=== PATIENT | female | born 1935 | race Two or more races ===

== ENCOUNTER 2020-09-17 15:46 | Outpatient (REF) | payer MEDICARE, OTHER, SELFPAY ==
--- NOTE | ~2020-09-17 | XR_ITS ---
EXAMINATION: XR KNEE, BILATERAL CLINICAL INFORMATION: Bilateral knee pain. COMPARISON: None TECHNIQUE: Four views of each knee. FINDINGS: Right knee: No acute fracture or dislocation is evident. There is chondrocalcinosis. There is significant narrowing of the lateral joint space compartment with [id number] narrowing of the medial joint space. Marginal spurring is present. Bony density about the medial aspect of the distal right femur is seen consistent with previous medial collateral ligament injury. There is degenerative spurring seen with subchondral cyst formation about the patellofemoral joint. There is a right knee effusion. Prominent vascular calcifications are present. Left knee: Chondrocalcinosis is present. There is moderate narrowing of the medial joint space compartment. No acute fracture or dislocation. No definite effusion is appreciated. Degenerative marginal spurring is seen undersurface of the patella. XR/XR knee RT 4V IMPRESSION: No acute fracture or dislocation of either the right or left knee. Right knee effusion. Bilateral chondrocalcinosis. Degenerative narrowing of the right lateral joint space compartment and patellofemoral joint. Degenerative narrowing of the right lateral joint space compartment and, to a lesser extent, the medial joint space compartment. There is some narrowing of the right patellofemoral joint with marginal spurring.
--- NOTE | ~2020-09-17 | XR_ITS ---
EXAMINATION: XR KNEE, BILATERAL CLINICAL INFORMATION: Bilateral knee pain. COMPARISON: None TECHNIQUE: Four views of each knee. FINDINGS: Right knee: No acute fracture or dislocation is evident. There is chondrocalcinosis. There is significant narrowing of the lateral joint space compartment with [id number] narrowing of the medial joint space. Marginal spurring is present. Bony density about the medial aspect of the distal right femur is seen consistent with previous medial collateral ligament injury. There is degenerative spurring seen with subchondral cyst formation about the patellofemoral joint. There is a right knee effusion. Prominent vascular calcifications are present. Left knee: Chondrocalcinosis is present. There is moderate narrowing of the medial joint space compartment. No acute fracture or dislocation. No definite effusion is appreciated. Degenerative marginal spurring is seen undersurface of the patella. XR/XR knee LT 4V IMPRESSION: No acute fracture or dislocation of either the right or left knee. Right knee effusion. Bilateral chondrocalcinosis. Degenerative narrowing of the right lateral joint space compartment and patellofemoral joint. Degenerative narrowing of the right lateral joint space compartment and, to a lesser extent, the medial joint space compartment. There is some narrowing of the right patellofemoral joint with marginal spurring.
== END 2020-09-17 15:47 | disposition home or self-care (01) ==
LOC: HO.XRAY 15:46
PROVIDERS: PCP Family Medicine; Visit Provider Family Medicine
DX: M25.561 Pain in right knee (principal); M25.562 Pain in left knee
CPT/HCPCS: 73564

== ENCOUNTER 2020-10-09 10:18 | Outpatient (REF) | payer MEDICARE, OTHER, SELFPAY ==
--- NOTE | ~2020-10-09 | US_ITS ---
EXAMINATION: US ABDOMEN COMPLETE CLINICAL INFORMATION: Abnormal levels of serum enzymes. COMPARISON: None TECHNIQUE: Real-time imaging of the abdominal viscera. FINDINGS: PANCREAS: Normal. Tail obscured by gas ABDOMINAL AORTA: There is mild atherosclerosis of the abdominal aorta. INFERIOR VENA CAVA: Visualized portions are normal. LIVER: The left lobe is enlarged measuring 14.1 cm in length. The right hepatic lobe is normal size. The liver is coarse, echogenic with scalloped margins. No focal hepatic lesion. There is no intrahepatic biliary duct dilatation seen. GALLBLADDER: Gallbladder is not seen. Question cholecystectomy. Correlate with clinical history.. COMMON BILE DUCT: Normal in caliber measuring 0.42 cm in diameter. RIGHT KIDNEY: Normal. No hydronephrosis. No renal calculi or focal parenchymal lesions. The kidney measures 9.6 cm in maximum dimension. LEFT KIDNEY: Normal. No hydronephrosis. No renal calculi or focal parenchymal lesions. The kidney measures 10.8 cm in maximum dimension. SPLEEN: The spleen is mildly enlarged The spleen measures 14.4 cm in maximum dimension. FREE FLUID: None. US/US abdomen complete IMPRESSION: Coarse echogenic cirrhotic liver without any focal lesion. Mild left hepatic lobe enlargement. Gallbladder not seen. Mild splenomegaly. Rest of the abdominal ultrasound is unremarkable.
== END 2020-10-09 10:19 | disposition home or self-care (01) ==
LOC: HO.US 10:18
PROVIDERS: Visit Provider Family Medicine
DX: R74.8 Abnormal levels of other serum enzymes (principal)
CPT/HCPCS: 76700

== ENCOUNTER → 2021-02-13 10:09 | Outpatient (BNVA) | payer MEDICARE, OTHER, SELFPAY | PROVIDERS: PCP Family Medicine; Visit Provider Surgery Vascular Surgery | DX: I73.9 Peripheral vascular disease, unspecified (principal) | CPT/HCPCS: 99202 ==

== ENCOUNTER 2021-03-06 08:22 | Outpatient (REF) | payer MEDICARE, OTHER, SELFPAY ==
--- NOTE | ~2021-03-06 | US_ITS ---
EXAMINATION: COLOR-FLOW DUPLEX IMAGING OF THE BILATERAL LOWER EXTREMITY ARTERIAL SYSTEM. VELOCITY MEASUREMENTS THROUGHOUT THE FEMORAL ARTERIES WITH ANKLE-BRACHIAL PERIPHERAL ARTERIAL TESTING. Interventional Radiologist: Jarrell Julian M.D., F.S.I.R., F.A.C.R. CLINICAL INFORMATION: This is an 86-year-old female with foot ulcers. Diabetes. Peripheral arterial disease. RIGHT FEMORAL RUNOFF VELOCITIES: The right common femoral artery measures 208 cm/s and biphasic. The right profunda femoral artery is 183 cm/s and is biphasic. Right proximal superficial femoral artery measures 182 cm/s and biphasic. Mid superficial femoral artery is 554 cm/s and biphasic. Distal right superficial femoral artery measures 65 cm/s and is biphasic. Right popliteal velocity measures 96 cm/s and is biphasic. The posterior tibial artery velocity measures 49 cm/s and was monophasic. The right ankle-brachial index is 0.47. LEFT FEMORAL RUNOFF VELOCITIES: The left common femoral artery measures 145 cm/s and biphasic. The left profunda femoral artery is 162 cm/s and is biphasic. Left proximal superficial femoral artery measures 137 cm/s and biphasic. Mid superficial femoral artery is 108 cm/s and biphasic. Distal left superficial femoral artery measures 123 cm/s and is biphasic. Left popliteal velocity measures 138 cm/s and is biphasic. The posterior tibial artery is occluded. The left peroneal artery is patent. The left ankle-brachial index is 0.57. There is scattered atherosclerotic plaque bilaterally. US/US arterial duplex LE BI IMPRESSION: 1. There is a high-grade right superficial femoral artery stenosis. 2. There is scattered atherosclerotic disease on the left runoff. However, the left posterior tibial artery appears to be occluded.
--- NOTE | ~2021-03-06 | US_ITS ---
EXAMINATION: COLOR-FLOW DUPLEX IMAGING OF THE BILATERAL LOWER EXTREMITY ARTERIAL SYSTEM. VELOCITY MEASUREMENTS THROUGHOUT THE FEMORAL ARTERIES WITH ANKLE-BRACHIAL PERIPHERAL ARTERIAL TESTING. Interventional Radiologist: Jarrell Julian M.D., F.S.I.R., F.A.C.R. CLINICAL INFORMATION: This is an 86-year-old female with foot ulcers. Diabetes. Peripheral arterial disease. RIGHT FEMORAL RUNOFF VELOCITIES: The right common femoral artery measures 208 cm/s and biphasic. The right profunda femoral artery is 183 cm/s and is biphasic. Right proximal superficial femoral artery measures 182 cm/s and biphasic. Mid superficial femoral artery is 554 cm/s and biphasic. Distal right superficial femoral artery measures 65 cm/s and is biphasic. Right popliteal velocity measures 96 cm/s and is biphasic. The posterior tibial artery velocity measures 49 cm/s and was monophasic. The right ankle-brachial index is 0.47. LEFT FEMORAL RUNOFF VELOCITIES: The left common femoral artery measures 145 cm/s and biphasic. The left profunda femoral artery is 162 cm/s and is biphasic. Left proximal superficial femoral artery measures 137 cm/s and biphasic. Mid superficial femoral artery is 108 cm/s and biphasic. Distal left superficial femoral artery measures 123 cm/s and is biphasic. Left popliteal velocity measures 138 cm/s and is biphasic. The posterior tibial artery is occluded. The left peroneal artery is patent. The left ankle-brachial index is 0.57. There is scattered atherosclerotic plaque bilaterally. US/US ESTER complete IMPRESSION: 1. There is a high-grade right superficial femoral artery stenosis. 2. There is scattered atherosclerotic disease on the left runoff. However, the left posterior tibial artery appears to be occluded.
== END 2021-03-06 08:23 | disposition home or self-care (01) ==
LOC: HO.US 08:22
PROVIDERS: Visit Provider Surgery Vascular Surgery
DX: I73.9 Peripheral vascular disease, unspecified (principal)
CPT/HCPCS: 93923; 93925

== ENCOUNTER → 2021-03-13 13:30 | Outpatient (BNVA) | payer MEDICARE, OTHER, SELFPAY | PROVIDERS: Visit Provider Surgery Vascular Surgery | DX: I73.9 Peripheral vascular disease, unspecified (principal) | CPT/HCPCS: 99212 ==

== ENCOUNTER 2021-03-19 05:55 | Day surgery (SDC) | payer MEDICARE, OTHER, SELFPAY ==
[2021-03-19] VITALS (8 sets, daily range): BP systolic 123–156; BP diastolic 51–67; PULSE 59–89; RESP 16–20; TEMP 36.2–36.8; O2SAT 96–100; BMI 27.8
[2021-03-19 06:26] LABS: MANUAL DIFF FLAG NO
[2021-03-19 06:33] LABS: Basophils Percent Auto 0.2 % (0-2); Eosinophils Absolute Auto 0.2 X10*3/uL (0.0-0.4); Eosinophils Percent Auto 3.2 % (0-4); Hematocrit 38.9 % (37.0-47.0); Imm Gran Abs Auto 0.02 X10*3/uL (0.00-0.03); Imm Gran Pct Auto 0.3 % (0.0-0.4); Lymphocytes Absolute Auto 2.4 X10*3/uL (1.2-4.9); Lymphocytes Percent Auto 39.1 % (20-40); Mean Corpuscular HGB Conc 30.8 g/dl (31.0-35.0); Mean Corpuscular Hemoglobin 28.4 pg (27.0-33.0); Mean Platelet Volume 12.7 fL (9.4-12.3); Monocytes Absolute Auto 0.4 X10*3/uL (0.1-1.2); Monocytes Percent Auto 6.1 % (2-11); Neutrophils Absolute Auto 3.2 x10*3/uL (2.0-8.3); Neutrophils Percent Auto 51.1 % (45-73); Platelet Count 110 X10*3/uL (160-400); Red Blood Count 4.23 X10*6/uL (4.20-5.50); Red Cell Distribution Width 14.8 % (11.0-16.0); White Blood Count 6.2 X10*3/uL (4.8-10.8)
[2021-03-19 06:34] LABS: Prothrombin Time 11.7 SEC (9.9-13.0)
[2021-03-19 06:37] LABS: Partial Thromboplastin Time 35.7 SEC (24.1-38.0)
[2021-03-19 06:51] LABS: Glucose, Whole Blood 80 mg/dL (60-115)
[2021-03-19 06:53] LABS: Anion Gap 8 (12-20); Blood Urea Nitrogen 14 mg/dL (9-16); Calcium 9.4 mg/dL (8.4-10.2); Carbon Dioxide 32 mmol/L (22-29); Chloride 107 mmol/L (96-108); Creatinine Clr Calc Pharmacy 43.7; Estimated Glomerular Filt Rate 57; Glucose Random 89 mg/dL (60-115); Sodium 143 mmol/L (135-145)
[2021-03-19] MEDS: 0.9 % Sodium Chloride 1,000 ML 100 ML IVCONT (08:11)
--- NOTE | 2021-03-19 10:50 | W.PM.OPN ---
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 Ultrasound-guided left common femoral access 2. Aortogram with right lower extremity runoff 3. Atherectomy and stent of right SFA 4. Plasty of right peroneal artery Surgeon:Jose Girard M.D., FACS, RPVI Transformer Shop Supervisor:None Anesthesia: Local with moderate conscious sedation. Total intraservice moderate sedation time was 78 minutes. I monitored the patient's level of consciousness and physiologic status continuously throughout the procedure. Specimens:none Drains:none Estimated blood loss: Less than 10 ml Implant: Medtronic Ev3 5 x 60 stent Indications: 86-year-old diabetic female with severe activity limiting claudication and has developed an ulcer on the right 2nd toe now presents for endovascular intervention. The patient has signed the informed consent after reviewing risks, complications, benefits, and alternatives previously discussed with the patient. The patient was given the opportunity to ask any additional questions or voice any concerns. All questions were answered to the patient's satisfaction. Procedure in detail: Patient was brought to the angiography suite prior to which a time-out was called for patient identification and site verification. Bilateral groins were prepped and draped in the standard surgical fashion. Under ultrasound guidance left common femoral was punctured with micro puncture needle and wire. Subsequently a precision 5 British sheath was then placed. Bentson wire was advanced to the level of the aorta. 5 British Flush catheter was brought up and parked at the level of the renal arteries. Aortogram was then undertaken. Catheter was brought down to the level of the iliac bifurcation. Iliacs were subsequently imaged. Catheter was then brought in up and over to the right side SFA. Runoff study was then undertaken. At this time there was a high-grade stenosis noted in the mid to distal SFA. 5000 units of systemic heparin was administered. Up and over 6 British catheter was then placed. We were able to traverse the lesion with a Glidewire Advantage. We E then confirmed true lumen with now the cross catheter instilled with contrast. We then exchanged out for an 018 spider wire. Over this in the distal SFA we performed a Hawk 1 atherectomy. Multiple unidirectional passes of the atherectomy device were oz undertaken. This was then removed and demonstrated a reasonable result with still some residual stenosis. At this time this was stented with a 5 x 60 stent and subsequently plasty did into position with a 5 x 40 balloon with multiple insufflations. Once this was accomplished we turned our attention to the below-knee vessels. There was concern diminished flow in the peroneal artery. We were able to traverse this lesion with an 014 wire. We subsequently insufflated a 1.5 by 40 balloon. Excellent result was achieved. Completion angiogram was then undertaken. StarClose closure device was then deployed. Patient tolerated the procedure well returned to recovery with stable vitals. Interpretation of films: 1. Ultrasound demonstrates appropriate femoral puncture. Image of which was saved. 2. Aortogram demonstrates appropriate caliber aorta. Minimal disease. Appropriate take-off of the renals. 3. Iliac images demonstrate mild tortuosity minimal disease 4. Right Leg Common femoral artery: No significant disease Profundus Femoris: No significant disease Superficial femoral artery: Disease in the distal SFA Popliteal artery (p1,p2,p3): Mild disease in the P1 segment normal P2 and P3 segment Anterior tibial artery: Occluded Peroneal artery: Mid had some mild disease was small in caliber Posterior tibial artery: Patent all the way to the level of the foot Dorsalis pedis/plantar arch: Incomplete arch being supplied by posterior tibial Conclusion: 1. Successful atherectomy and stent of right SFA successful plasty of right peroneal 2. Anticoagulation status: Patient will require 6 months aspirin and Plavix. This note is constructed using voice recognition software. While every effort has been made to ensure accuracy, population geneticist errors may have been included. Thank you for allowing me to participate in the care of your patient. Yours sincerely, Jose Girard MD, FACS, R.P.V.I.
[2021-03-19] MEDS: Clopidogrel Bisulfate 300 MG TABLET PO (11:10)
[2021-03-19] MEDS: ondansetron HCL 4 MG/2 ML VIAL IVPUSH (11:55)
== END 2021-03-19 12:30 | disposition home or self-care (01) ==
PROVIDERS: PCP Family Medicine; Visit Provider Surgery Vascular Surgery
DX: I70.235 Atherosclerosis of native arteries of right leg with ulceration of other part of foot (principal); E11.51 Type 2 diabetes mellitus with diabetic peripheral angiopathy without gangrene; L97.519 Non-pressure chronic ulcer of other part of right foot with unspecified severity; E11.621 Type 2 diabetes mellitus with foot ulcer; M19.90 Unspecified osteoarthritis, unspecified site; I10 Essential (primary) hypertension; E21.3 Hyperparathyroidism, unspecified; Z88.8 Allergy status to other drugs, medicaments and biological substances; Z79.4 Long term (current) use of insulin; Z79.899 Other long term (current) drug therapy; Z90.49 Acquired absence of other specified parts of digestive tract
CPT/HCPCS: 36415; 37227; 37228; 76937; 80048; 82947; 85025; 85610; 85730; 99152; 99153; C1714; C1725; C1760; C1769; C1876; C1884; C1887; J2250; J2405; J3010; Q9967

== ENCOUNTER 2021-03-24 19:13 | Emergency (ER) | payer MEDICARE, OTHER, SELFPAY ==
[2021-03-24 19:51] VITALS: BP 188/66; PULSE 88; RESP 18; TEMP 36.8; O2SAT 98; BMI 30.4
--- NOTE | 2021-03-24 22:08 | ED.ALLEREA ---
HPI - Allergic Reaction General Chief complaint: Allergic Reaction Stated complaint: ? med reaction Time Seen by Provider: 03/24/21 21:54 Source: patient and family Mode of arrival: ambulatory Limitations: language barrier (Nicaraguan-speaking) History of Present Illness HPI narrative: 86-year-old female with a past medical history of osteoarthritis, hypothyroidism, diabetes, hypertension, PAD and arthrosclerosis of right lower extremity with nonhealing ulcer who is now status post successful atherectomy and stent of right SFA successful plasty of right peroneal on 03/19/[address] Girard placed on aspirin and Plavix presenting to the ED with complaints of a rash to her entire body for the past 2 days worse today despite taking Benadryl. She reports that she believes is related to the Plavix she started on 03/19/2021. She reports that Dr. Girard when she contacted him explained to her that she should take Benadryl and discontinue the Plavix although she reports that he did not tell her to take anything else. She denies any other symptoms complaints or concerns at this time MD complaint: allergic reaction and hives Onset (ago): day(s) (2) Exposure: medication (Plavix) Symptoms: rash and itching Severity: moderate Treatment prior to arrival: benadryl Previous Allergic Reaction History: none Related Data Home Medications Medication Instructions Recorded Confirmed amlodipine 10 mg tablet 10 mg PO DAILY 11/01/20 atorvastatin 10 mg tablet (Lipitor) 10 mg PO DAILY 11/01/20 cholecalciferol (vitamin D3) PO 11/01/20 gabapentin 600 mg tablet 600 mg PO DAILY 11/01/20 insulin glargine 100 unit/mL (3 26 unit SUBCUT QAM ml 11/01/20 mL) subcutaneous pen (Lantus Solostar U-100 Insulin) ketorolac 0.5 % eye drops 1 drp OPHTHALMIC (EYE) QID 11/01/20 levothyroxine 88 mcg capsule 88 mcg PO DAILY 11/01/20 losartan 100 1 tab PO DAILY 11/01/20 mg-hydrochlorothiazide 25 mg tablet nabumetone 750 mg tablet 750 mg PO BID 11/01/20 gabapentin 100 mg capsule 100 mg PO DAILY 02/13/21 lancets 33 gauge (TRUEplus Lancets) #100 ea 02/13/21 Previous Rx's Medication Instructions Recorded clopidogrel 75 mg tablet (Plavix) 75 mg PO DAILY #30 tab 03/19/21 aspirin 162.5 mg capsule,extended 162.5 mg PO DAILY #30 cap 03/24/21 release 24 hr diphenhydramine HCl 25 mg tablet 50 mg PO TID PRN #10 tab 03/24/21 (Benadryl Allergy) famotidine 20 mg tablet (Pepcid) 20 mg PO BID #14 tab 03/24/21 prednisone 20 mg tablet 40 mg PO DAILY 5 Days #10 tab 03/24/21 Allergies Allergy/AdvReac Type Severity Reaction Status Date / Time metformin AdvReac Mild Nausea and Verified 03/24/21 21:50 Vomiting Review of Systems Review of Systems: Constitutional : No Fever, No Chills , no body aches, no recent illness Head/Face: No facial swelling, No facial redness ENT/Mouth : No oral/throat swelling, No Hoarseness, No Swallowing Difficulty Eyes: No Eye Pain, No Swelling, No Redness Cardiovascular : No Chest Pain, No SOB, No palpitations Respiratory : No Cough, No Sputum, No Wheezing, No Smoke Exposure, No Dyspnea Gastrointestinal : No Nausea, No Vomiting, No Diarrhea, No abdominal Pain Genitourinary : No Dysuria, No Urinary Frequency, No Hematuria Musculoskeletal : No joint pain, No Myalgias, No Joint Swelling Skin : No Skin Lesions, positive rash Neuro : No Weakness, No Numbness, No Headache, No dizziness, No tingling Psych : No Anxiety/Panic, No Depression Heme/Lymph: No Bruising, No Lymphadenopathy Endocrine : No Polyuria, No Polydipsia Denies changes in lotions or detergents. + new medication Plavix Denies drainage from rash. Denies any recent sick contacts or recent travel. Yes all other systems are reviewed and are negative [facility] Past Medical History Attestation statement: The following information was validated with the patient. Medical History Diabetes Hypertension Hyperthyroidism Osteoarthritis Surgical History History of cholecystectomy Social History Social History Patient Tobacco Use Status: Never used Tobacco Advance Directives: No Advance Directives Information Provided: No Physical Exam Vital Signs: Vital Signs: Last Vital Signs Temp 98.2 F 03/24/21 19:51 Pulse 88 03/24/21 19:51 Resp 18 03/24/21 19:51 BP 188/66 H 03/24/21 19:51 Pulse Ox 98 03/24/21 19:51 Body Mass Index 30.4 vital signs have been reviewed as normal and appeared to be correct. Blood pressure 188/66 Heart rate normal. Respiration rate normal. Temperature normal. Oxygen saturation normal. Appearance: Alert. Oriented X3. No acute distress. Head: Normal external exam. Normocephalic. Atraumatic. Eyes: PERRLA. EOMI. Conjunctiva and sclera normal. Eyelids normal. ENT: Pharynx normal. Uvula midline. Moist mucous membranes. No trismus noted. No drooling noted. No muffled voice noted. No angioedema noted. Neck: Normal inspection. Neck supple. FROM. No adenopathy. Thyroid Normal. No meningeal signs. No neck mass noted. CVS: Normal heart rate and rhythm. Heart sound normal. Pulses normal throughout. No murmurs/rales/gallops. Respiratory: No respiratory distress. Painless inspiration. Breath sounds normal. No wheezes/rales/rhonchi noted. Chest nontender. No accessory muscle usage noted or decreased air movement noted. Abdomen: Soft and nontender. Bowel sounds normal in all 4 quadrants. No distention noted. No organomegaly noted. No visible injury noted. Back: Full range of motion noted. No rashes/lesion/induration/fluctuance or signs of infection noted. Skin: Skin warm and dry. Normal skin color. Normal skin turgor. To the patient's entire body although sparing the face patient has macular papular pruritic erythematous rash consistent with allergic reaction. No lesions/lacerations noted. Extremities: Extremities exhibit normal range of motion. Extremities nontender. Neuro: Oriented X 3. No motor deficit. No sensory deficit. Reflexes normal. Normal steady gait. No focal neuro deficits noted. Vascular: + radial pulses/+ 2 distal pedal pulses/+2 dorsalis pedis b/l. Normal cap refill. No cyanosis noted to upper extremity nails and lower extremity toes nails. Course Course Course Narrative: IMP/Plan: Allergic rxn. Not anaphylaxis. Not sepsis/ infectious etiology. Patient well appearing in no acute distress, breathing easily without throat symptoms. Speaking full sentences, and handling secretions without difficulty. There is no obvious threat to airway. Lungs are CTA in all duff. No signs of angioedema, stridor, airway compromise, anaphylaxis or anaphylactic shock. Not c/w SSSS/ TEN/ Eryth multiforme/ [place] Johnsons. Given HPI and PE - Will watch and observe. If patient continues to be symptom free - will d/c with return precautions. Will also start the patient on aspirin as instructed by Dr. Girard and to stop the Plavix and to follow up with Dr. Girard. Patient understands and agrees with plan MDM - Allergic Reaction Medical Records Attestation: I reviewed the patient's medical records. Discharge Plan Discharge Clinical Impression: Allergic reaction, Urticaria Patient Disposition: Home, Self-Care Instructions: Urticaria (ED), General Allergic Reaction (ED) Additional Instructions: Do not take the Plavix any longer. Instead take this aspirin. Return if any new or worsening symptoms. Follow up with Dr. Girard your primary care provider. Prescriptions: New aspirin 162.5 mg capsule,extended release 24hr 162.5 mg PO DAILY Qty: 30 RF: 0 prednisone 20 mg tablet 40 mg PO DAILY 5 Days Qty: 10 RF: 0 diphenhydramine HCl [Benadryl Allergy] 25 mg tablet 50 mg PO TID PRN (Reason: allergic reaction) Qty: 10 RF: 0 famotidine [Pepcid] 20 mg tablet 20 mg PO BID Qty: 14 RF: 0 No Action clopidogrel [Plavix] 75 mg tablet 75 mg PO DAILY Qty: 30 RF: 5 Referrals: Jose Girard MD [Physician] - 2 days Print Language: [place]arag[place]
[2021-03-24] MEDS: predniSONE 20 MG TABLET 60 MG PO (22:27)
[2021-03-24] MEDS: diphenhydrAMINE HCL 25 MG TABLET 50 MG PO (22:27)
[2021-03-24] MEDS: Aspirin 81 MG TAB.CHEW 162 MG PO (22:27)
[2021-03-24] MEDS: Famotidine 20 MG TABLET PO (22:28)
== END 2021-03-24 22:46 | disposition home or self-care (01) ==
PROVIDERS: Emergency Provider Emergency Medicine
DX: L50.0 Allergic urticaria (principal); E11.9 Type 2 diabetes mellitus without complications; I10 Essential (primary) hypertension; Z79.02 Long term (current) use of antithrombotics/antiplatelets; Z95.820 Peripheral vascular angioplasty status with implants and grafts
CPT/HCPCS: 99283; 99284; Q0163

== ENCOUNTER → 2021-04-08 11:28 | Outpatient (BNVA) | payer MEDICARE, OTHER, SELFPAY | PROVIDERS: Visit Provider Surgery Vascular Surgery | DX: I73.9 Peripheral vascular disease, unspecified (principal) | CPT/HCPCS: 99212 ==